=== PATIENT | female | born 1980 | race Asian ===

== ENCOUNTER 2017-07-04 18:10 | Observation (INO) | payer SELFPAY ==
[~2017-07-04] VITALS: Ht 160 cm; Wt 48.1 kg
[~2017-07-04 18:10] MED LIST: PRENTAB44 PO
[2017-07-04 18:18] VITALS: BP 104/65; PULSE 86; RESP 16; TEMP 97.9; O2SAT 97
[2017-07-04] MEDS ORDERED: SODIUM CHLORIDE 0.9% FLUSH 10 ML FLUSH IV FLUSH PRN ×2 (19:30→22:30)
[2017-07-04 19:39] LABS: BASOPHIL # 0.1 TH/MM3 (0-0.2); BASOPHIL % 1.1 % (0.0-2.0); EOSINOPHIL # 0.1 TH/MM3 (0-0.4); EOSINOPHIL % 0.4 % (0.0-4.0); HEMATOCRIT 37.7 % (35.0-46.0); LYMPH % 9.7 % (9.0-44.0); LYMPHOCYTE # 1.3 TH/MM3 (1.0-4.8); MEAN CELL VOLUME 87.2 FL (80.0-100.0); MEAN CORPUSCULAR HEMOGLOBIN 29.2 PG (27.0-34.0); MEAN CORPUSCULAR HGB CONC 33.4 % (32.0-36.0); NEUT % 82.8 % (16.0-70.0); PLATELET COUNT 225 TH/MM3 (150-450); RED BLOOD COUNT 4.32 MIL/MM3 (4.00-5.30); RED CELL DISTRIBUTION WIDTH 11.3 % (11.6-17.2); WHITE BLOOD COUNT 13.3 TH/MM3 (4.0-11.0)
[2017-07-04 19:46] LABS: HEMO FLAGS DIFF FINAL
[2017-07-04 19:48] LABS: CHLORIDE 102 MEQ/L (98-107); POTASSIUM 4.4 MEQ/L (3.5-5.1); SODIUM (NA) 137 MEQ/L (136-145)
[2017-07-04 19:51] LABS: ANION GAP 9 MEQ/L (5-15); BICARBONATE 25.8 MEQ/L (21.0-32.0); BLOOD UREA NITROGEN 11 MG/DL (7-18)
[2017-07-04 19:53] LABS: APTT (PATIENT) 30.7 SEC (24.3-30.1)
--- NOTE | 2017-07-04 19:53 | PD ---
HPI Chief Complaint: Abdominal Pain Time Seen by Provider: 19:25 Travel History International Travel<30 days: No Contact w/Intl Traveler<30days: No Traveled to known affect area: No History of Present Illness HPI The patient is a 36-year-old female that complained of abdominal pain 2 days ago , on Saturday, that was in the midline slightly above the umbilicus. She did have nausea and vomiting yesterday and the pain shifted from the midline above the umbilicus to the right lower quadrant. The patient went today to a walk-in clinic and an outpatient CT scan was ordered at [facility]. This was done around [address] scan showed acute appendicitis. The patient does not have a primary care physician or insurance. She has no known medical problems and is not on any medications. [facility] Past Medical History Medical History: Denies Significant Hx Tetanus Vaccination: Unknown Influenza Vaccination: No ?: Unknown LMP: 06/06/17 : 4 Para: 2 Miscarriage: 2 Past Surgical History Surgical History: No Previous Surgery Social History Alcohol Use: No Tobacco Use: No Substance Use: No Allergies-Medications (Allergen,Severity, Reaction): Coded Allergies: No Known Allergies (Unverified Adverse Reaction, Unknown, 07/04/17) Reported Meds & Prescriptions Reported Meds & Active Scripts Active No Active Prescriptions or Reported Medications Review of Systems Except as stated in HPI: all other systems reviewed are Neg Physical Exam Narrative GENERAL: The patient is alert, oriented 3, slightly dehydrated-appearing in moderate apparent distress with her right lower quadrant discomfort. Her vital signs are normal. SKIN: Focused skin assessment warm/dry. HEAD: Atraumatic. Normocephalic. EYES: Pupils equal and round. No scleral icterus. No injection or drainage. ENT: No nasal bleeding or discharge. Mucous membranes pink and moist. NECK: Trachea midline. No JVD. CARDIOVASCULAR: Regular rate and rhythm. No murmur appreciated. RESPIRATORY: No accessory muscle use. Clear to auscultation. Breath sounds equal bilaterally. GASTROINTESTINAL: Abdomen soft, with tenderness in the right lower quadrant to direct palpation, nondistended. Hepatic and splenic margins not palpable. Pressure over the left lower quadrant reproduces pain in the right lower quadrant. No rebound is present. MUSCULOSKELETAL: No obvious deformities. No clubbing. No cyanosis. No edema. NEUROLOGICAL: Awake and alert. No obvious cranial nerve deficits. Motor grossly within normal limits. Normal speech. PSYCHIATRIC: Appropriate mood and affect; insight and judgment normal. GENITOURINARY: Normal external genitalia without lesions or erythema. Vaginal vault without blood or drainage. Cervical os was closed without drainage. No cervical motion tenderness. Uterus nontender and nonenlarged. The left adnexa nontender without masses. Right adnexa is minimally tender without masses. Data Data Last Documented VS Vital Signs Date Time Temp Pulse Resp B/P (MAP) Pulse Ox O2 Delivery O2 Flow Rate FiO2 07/04/17 19:57 97.9 81 20 102/63 (76) 100 Room Air Orders Orders Basic Metabolic Panel (Bmp) (07/04/17 19:25) Beta Hcg (Quant/Titer) (07/04/17 19:25) Complete Blood Count With Diff (07/04/17 19:25) Prothrombin Time / Inr (Pt) (07/04/17:25) Act Partial Throm Time (Ptt) (07/04/17:25) Urinalysis - C+S If Indicated (07/04/17 19:25) Iv Access Insert/Monitor (07/04/17 19:25) Ecg Monitoring (07/04/17 19:25) Oximetry (07/04/17 19:25) Sodium Chloride 0.9% Flush (Ns Flush) (07/04/17 19:30) Piperacil-Tazo 3.375 Gm Premix (Zosyn 3. (07/04/17 20:00) Labs Laboratory Tests Test 07/04/17 19:30 07/04/17 19:45 White Blood Count 13.3 TH/MM3 Red Blood Count 4.32 MIL/MM3 Hemoglobin 12.6 GM/DL Hematocrit 37.7 % Mean Corpuscular Volume 87.2 FL Mean Corpuscular Hemoglobin 29.2 PG Mean Corpuscular Hemoglobin Concent 33.4 % Red Cell Distribution Width 11.3 % Platelet Count 225 TH/MM3 Mean Platelet Volume 7.7 FL Neutrophils (%) (Auto) 82.8 % Lymphocytes (%) (Auto) 9.7 % Monocytes (%) (Auto) 6.0 % Eosinophils (%) (Auto) 0.4 % Basophils (%) (Auto) 1.1 % Neutrophils # (Auto) 11.0 TH/MM3 Lymphocytes # (Auto) 1.3 TH/MM3 Monocytes # (Auto) 0.8 TH/MM3 Eosinophils # (Auto) 0.1 TH/MM3 Basophils # (Auto) 0.1 TH/MM3 CBC Comment DIFF FINAL Differential Comment Prothrombin Time 11.0 SEC Prothromb Time International Ratio 1.0 RATIO Activated Partial Thromboplast Time 30.7 SEC Blood Urea Nitrogen 11 MG/DL Creatinine 0.59 MG/DL Random Glucose 82 MG/DL Calcium Level 8.5 MG/DL Sodium Level 137 MEQ/L Potassium Level 4.4 MEQ/L Chloride Level 102 MEQ/L Carbon Dioxide Level 25.8 MEQ/L Anion Gap 9 MEQ/L Estimat Glomerular Filtration Rate 115 ML/MIN Human Chorionic Gonadotropin, Quant LESS THAN 1 MIU/ML Urine Color YELLOW Urine Turbidity CLEAR Urine pH 7.0 Urine Specific Ong GREATER THAN 1.035 Urine Protein 30 mg/dL Urine Glucose (UA) NEG mg/dL Urine Ketones 40 mg/dL Urine Occult Blood LARGE Urine Nitrite NEG Urine Bilirubin NEG Urine Leukocyte Esterase NEG Urine RBC 4-9 /hpf Urine WBC 0-2 /hpf Urine Squamous Epithelial Cells 6-8 /hpf Urine Bacteria NONE /hpf Microscopic Urinalysis Comment CULT NOT INDICATED MDM Medical Decision Making Medical Screen Exam Complete: Yes Emergency Medical Condition: Yes Medical Record Reviewed: Yes Interpretation(s) The CBC shows a white count of 13,300 with 83% neutrophils. It is otherwise unremarkable. The coagulation profile shows an APTT of 30.7 but is otherwise normal. The basic metabolic profile is normal and the beta-hCG is less than 1. The urine shows specific gravity of greater than 1.035 with 30 protein, 40 ketones and large occult blood and 4-9 red cells and is otherwise unremarkable and culture is not indicated. Differential Diagnosis Acute appendicitis, acute appendicitis with perforation, acute appendicitis with abscess formation, PID Narrative Course The patient appears to have acute appendicitis clinically. This does not appear as PID, she has no cervical tenderness. I discussed the patient with Dr. Shi and he is going to schedule surgery here at [facility]. Physician Communication Physician Communication I discussed the patient with Dr. Mejia. Admitting Information Admitting Physician Requests: Observation Scripts No Active Prescriptions or Reported Meds Disposition: 01 DISCHARGE HOME Condition: Stable Chandu Mcginnis MD Jul 04, 2017 19:53
[2017-07-04 19:54] LABS: GLOMERULAR FILTRATION RATE 115 ML/MIN (>89)
[2017-07-04 19:57] VITALS: BP 102/63; PULSE 81; RESP 20; TEMP 97.9; O2SAT 100
[2017-07-04 19:59] LABS: BETA HCG QUANT LESS THAN 1 MIU/ML (0-5)
[2017-07-04] MEDS ORDERED: PIPERACIL-TAZO 3.375 GM PREMIX 50 ML IV ONE (20:00)
[2017-07-04 20:01] LABS: BLOOD, URINE LARGE (NEG); GLUCOSE,URINE NEG (NEG); KETONE, URINE 40 mg/dL (NEG); NITRITE,URINE NEG (NEG)
[2017-07-04 20:08] LABS: URINE COLOR YELLOW (YELLW/STRAW)
[2017-07-04 20:09] LABS: COMMENT (UR) CULT NOT INDICATED; CULTURE IF INDICATED CULT NOT INDICATED; WBC, URINE 0-2 /hpf (0-5)
[2017-07-04 20:25] VITALS: BP 103/74; TEMP 97.3
[2017-07-04] MEDS ORDERED: SODIUM CHLOR 0.9% 1000 ML INJ 1,000 ML IV SCH (20:30)
[2017-07-04] MEDS ORDERED: BUPIVACAINE/EPINEPHRINE 0.25% PF 30 ML VIAL ONE (20:48)
[2017-07-04] MEDS ORDERED: FAMOTIDINE 20 MG/2 ML VIAL ONE (21:16)
[2017-07-04] MEDS ORDERED: *Lactated Ringer's INJ 1,000 ML ONE (21:34)
[2017-07-04] MEDS ORDERED: INSULIN HUMAN REGULAR 1,000 UNITS/10 ML VIAL SQ PRN (21:45)
[2017-07-04] MEDS ORDERED: POVIDONE IODINE 5% (ANTISEPSIS KIT) 4 APPLICATIONS EACH NARE PRN (21:45)
[2017-07-04] MEDS ORDERED: METOPROLOL TARTRATE 25 MG TAB PO PRN (21:45)
[2017-07-04] MEDS ORDERED: CHLORHEXIDINE GLUCONATE 2 % 1 PACK (2 CLOTHS) TOPICAL PRN (21:45)
[2017-07-04] MEDS ORDERED: LACTATED RINGER'S 1000 ML IV PRN (21:45)
[2017-07-04] MEDS ORDERED: SODIUM CHLORID 0.9% 500 ML IV PRN (21:45)
[2017-07-04] MEDS ORDERED: SUGAMMADEX SODIUM 200 MG/2 ML VIAL IV PUSH ONE ×2 (22:05)
[2017-07-04] MEDS ORDERED: *MEPERIDINE 25 MG INJ VIAL PERIprocedural Use ONLY ONE (22:22)
[2017-07-04] MEDS ORDERED: LACTATED RINGER'S 1000 ML INJ 1,000 ML IV SCH (22:23)
[2017-07-04 22:25] VITALS: PULSE 76
[2017-07-04] MEDS ORDERED: MIDAZOLAM HCL 2 MG/2 ML VIAL ONE (22:28)
[2017-07-04] MEDS ORDERED: MORPHINE SULFATE 4 MG/ML INJ IV PUSH PRN (22:30)
[2017-07-04] MEDS ORDERED: KETOROLAC TROMETHAMINE 30 MG/ML (IVP) VIAL IVP PRN (22:30)
[2017-07-04] MEDS ORDERED: ACETAMINOPHEN/HYDROcodone 325 MG/5 MG TAB PO PRN (22:30)
[2017-07-04] MEDS ORDERED: Post-op Orders (for Pharmacy) MISC XX ONE (22:30)
[2017-07-04] MEDS: SODIUM CHLORIDE 0.9% FLUSH 10 ML FLUSH IV FLUSH SCH (22:30)
[2017-07-04] MEDS ORDERED: diphenhydrAMINE HCL 25 MG CAP PO PRN (22:30)
[2017-07-04] MEDS ORDERED: ONDANSETRON HCL 4 MG/2 ML VIAL IV PUSH PRN (22:30)
[2017-07-04 23:00] VITALS: PULSE 70
[2017-07-04 23:30] VITALS: BP 105/70; PULSE 68; RESP 18; TEMP 97.9; O2SAT 100
[2017-07-04] MEDS: ACETAMINOPHEN/HYDROcodone 325 MG/5 MG TAB PO PRN (23:46)
--- NOTE | 2017-07-04 23:58 | MH ---
cc: TONYA MEREDITH DATE OF ADMISSION 07/04/2017 CHIEF COMPLAINT Acute appendicitis. HISTORY OF PRESENT ILLNESS The patient is a 36-year-old female who presented to [place] emergency department with 2 days of increasing right lower quadrant pain. The patient states that she developed a pain suddenly two days ago in the right lower quadrant as well as decreased oral intake. She states she has never had this pain before and the pain is constant, nonradiating. She denies any other symptoms such as shortness of breath, chest pain or neurologic system symptoms. She denies any recent STDs or vaginal discharge or any constipation, diarrhea, fevers, chills or night sweats. The patient was seen by Urgent Care who sent her for CT scan which was concerning for a possible appendicitis. The patient was sent by an outside outpatient physician to the emergency department due to concern for appendicitis on her CT scan. REVIEW OF SYSTEMS 12-point review of systems was reviewed with the patient is negative except for the pertinent positives mentioned above in the history of present illness. PAST MEDICAL HISTORY None. PAST SURGICAL HISTORY None. ALLERGIES NO KNOWN DRUG ALLERGIES. MEDICATIONS No home medications. SOCIAL HISTORY The patient denies alcohol, tobacco or illicit drug use. FAMILY HISTORY Noncontributory PHYSICAL EXAMINATION VITAL SIGNS: Temperature 97.9 degrees, heart rate 81, respiratory rate 20, blood pressure 102/63. GENERAL: The patient is a thin female in no acute distress. HEENT: Head normocephalic, atraumatic. Pupils are round, reactive, accommodating to light. Sclerae is anicteric. Oral cavity is clear. Mucous membranes moist. NECK: Neck is supple. No JVD. Trachea is midline. LUNGS: Clear to auscultation bilaterally. Nonlabored breathing pattern. HEART: Regular rhythm. PMI nondisplaced. ABDOMEN: Soft, scaphoid. No surgical scars. Hypoactive bowel sounds. The patient has some tenderness to palpation in the right lower quadrant without rebound tenderness or focal peritonitis. RECTAL: Exam deferred. EXTREMITIES: No clubbing, cyanosis or edema. BACK: No CVA tenderness. NEUROLOGIC: The patient is awake, alert, oriented x3, nonfocal peripheral examination. Cranial II-XII are grossly intact. LABORATORY FINDINGS Elevated white blood cell count of 13.3, with elevated neutrophil count of 82%. ASSESSMENT/PLAN The patient is a 36-year-old female with acute right lower quadrant pain and a CT scan could be consistent with an acute appendicitis. Discussed the findings with the patient. The patient is clinically consistent with acute appendicitis although this diagnosis is tentative. Did discuss nonoperative management and further observation as well as proceeding to the operating room with laparoscopic appendectomy. We did explain the risks, benefits and alternatives to surgery and the patient agreed, would like to undergo appendectomy at this time. We will proceed with laparoscopic appendectomy urgently based on the operating room availability. We will keep the patient n.p.o., continue IV antibiotics, IV fluids and analgesics. MD SHYANN Morales/ZAMZAM /9:23 PM /11:44 PM MTDD
[2017-07-05] MEDS: PIPERACIL-TAZO 3.375 GM PREMIX 50 ML IV SCH ×2 (02:00→08:54)
[2017-07-05 04:00] VITALS: BP 87/60; PULSE 67; RESP 20; TEMP 97.6; O2SAT 98
[2017-07-05 08:00] VITALS: BP 99/51; PULSE 72; RESP 16; TEMP 98.4; O2SAT 98
[2017-07-05] MEDS: SODIUM CHLORIDE 0.9% FLUSH 10 ML FLUSH IV FLUSH SCH (08:55)
--- NOTE | 2017-07-05 09:21 | HHI.PR ---
Subjective Subjective Notes s/p lap appy, pain controlled, no NV, no fevers Objective Vitals/I&O Vital Signs Date Time Temp Pulse Resp B/P (MAP) Pulse Ox O2 Delivery O2 Flow Rate FiO2 07/05/17 08:00 98.4 72 16 99/51 (67) 98 07/04/17 23:00 Room Air Labs Laboratory Tests Test 07/04/17 19:30 07/04/17 19:45 White Blood Count 13.3 Red Blood Count 4.32 Hemoglobin 12.6 Hematocrit 37.7 Mean Corpuscular Volume 87.2 Mean Corpuscular Hemoglobin 29.2 Mean Corpuscular Hemoglobin Concent 33.4 Red Cell Distribution Width 11.3 Platelet Count 225 Mean Platelet Volume 7.7 Neutrophils (%) (Auto) 82.8 Lymphocytes (%) (Auto) 9.7 Monocytes (%) (Auto) 6.0 Eosinophils (%) (Auto) 0.4 Basophils (%) (Auto) 1.1 Neutrophils # (Auto) 11.0 Lymphocytes # (Auto) 1.3 Monocytes # (Auto) 0.8 Eosinophils # (Auto) 0.1 Basophils # (Auto) 0.1 CBC Comment DIFF FINAL Differential Comment Prothrombin Time 11.0 Prothromb Time International Ratio 1.0 Activated Partial Thromboplast Time 30.7 Blood Urea Nitrogen 11 Creatinine 0.59 Random Glucose 82 Calcium Level 8.5 Sodium Level 137 Potassium Level 4.4 Chloride Level 102 Carbon Dioxide Level 25.8 Anion Gap 9 Estimat Glomerular Filtration Rate 115 Human Chorionic Gonadotropin, Quant LESS THAN 1 Urine Color YELLOW Urine Turbidity CLEAR Urine pH 7.0 Urine Specific [place] GREATER THAN 1.035 Urine Protein 30 Urine Glucose (UA) NEG Urine Ketones 40 Urine Occult Blood LARGE Urine Nitrite NEG Urine Bilirubin NEG Urine Leukocyte Esterase NEG Urine RBC 4-9 Urine WBC 0-2 Urine Squamous Epithelial Cells 6-8 Urine Bacteria NONE Microscopic Urinalysis Comment CULT NOT INDICATED Cardiovascular: Regular Lungs: Clear Abdomen: Non-distended, Post-op tenderness Extremities: No edema, Perfused A/P Assessment and Plan 36yo F s/p lap appy, stable. pain ok OOB DC home if tolerates PO Gamenthaler,James W. MD Jul 05, 2017 09:21
[2017-07-05] MEDS ORDERED: AUGM875T3 PO (09:42)
[2017-07-05] MEDS: ACETAMINOPHEN/HYDROcodone 325 MG/5 MG TAB PO PRN (10:47)
--- NOTE | 2017-07-05 10:52 | MP ---
cc: TONYA MEREDITH DATE OF SURGERY 07/05/2017 PREOPERATIVE DIAGNOSIS Acute appendicitis POSTOPERATIVE DIAGNOSIS Acute suppurative appendicitis PROCEDURE Laparoscopic appendectomy ATTENDING SURGEON Tonya Meredith MD [employer]MENT OPERATOR Staff ANESTHESIA General local anesthetic BLOOD LOSS Less than 10 cc. COMPLICATIONS None FINDINGS Acute suppurative appendicitis without gangrene or without perforation. INDICATIONS FOR PROCEDURE The patient is a 36-year-old female who was diagnosed with acute appendicitis as an outpatient with a CT scan at [facility] and was sent to the emergency department. The patient had two days of right lower quadrant pain and appendicitis was suspected and identified by the emergency room physician and general surgery was consulted. The risks, benefits, and alternatives to laparoscopic appendectomy were discussed with the patient prior to the procedure and the patient agreed to undergo the procedure. PROCEDURE The patient was taken to the operating room at [facility], placed under general endotracheal anesthesia. The patient's abdomen was prepped and draped in a sterile fashion. Time-out was performed. The abdomen was entered through a curvilinear incision below the umbilicus with a 10 mm trocar under direct visualization. We insufflated the abdomen and without difficulty. We surveyed the abdomen with a 5 mm 30 degree camera. There was no evidence of any complication from our entry. We placed a 5-mm port in the suprapubic position and a 5-mm port in the left lower quadrant under direct visualization of the laparoscope. Local anesthetic was used at all port sites. Unable to do a diagnostic laparoscopy. There is a right ovarian cyst. The left ovary and both tubes were normal. There is a mildly dilated appendix at the base with a twist at the base of the appendix like a torsion or a volvulus of the appendix. This was causing severe inflammation and suppurative appendicitis without rupture. We able to grasp the appendix, detorse it and divide the base of the appendix as it splayed into the cecum along with the appendiceal mesentery with two loads on the vascular [place] stapler. The appendix was removed from the abdomen with the EndoCatch bag. We then were able to have excellent seal at our appendiceal stump as it splayed into the cecum and there was no bleeding at our staple line. We used a gauze to absorb a small amount of inflammatory fluid and a small blood clot from the right lower quadrant and pelvis. There is no evidence of an inch any other will pathology and there is no evidence of any complications. At this point in time, we relocated the omentum back towards the right lower quadrant and removed all ports under the visualization of the laparoscope. We expressed pneumoperitoneum, closed the Ramirez type technique with a [id number] 0 Vicryl suture on the fascia. We closed the skin with 4-0 Monocryl and Dermabond. The patient was discontinued from anesthesia and taken to the PACU in stable condition. The patient tolerated the procedure well with no apparent complications. I was present and scrubbed for the entire procedure. MD SHYANN Morales/SHIRA /10:33 PM /10:32 AM MTDD
[2017-07-05 11:20] VITALS: RESP 18
== END 2017-07-05 11:25 | disposition home or self-care (01) ==
LOC: PHED 18:10 → PHEDA 20:23 → PH3A 23:11
PROVIDERS: ADMIT Surgery; ATTEND Surgery
DX: K35.80 Unspecified acute appendicitis (principal)
CPT/HCPCS: 00840; 44970; 80048; 81001; 84702; 85025; 85610; 85730; 88304; 96365; 96366; 99285; G0378; J2175; J2250; J2543; J3010; J7120